=== PATIENT | male | born 1960 | race Caucasian/White ===

== ENCOUNTER → 2018-04-20 | Outpatient (CLI) | payer BC | END | disposition home or self-care (01) | LOC: RAH 09:04 | PROVIDERS: ATTEND Urology | DX: K76.0 Fatty (change of) liver, not elsewhere classified (principal); N28.1 Cyst of kidney, acquired; N28.89 Other specified disorders of kidney and ureter | CPT/HCPCS: 76700 ==

== ENCOUNTER 2019-04-15 23:43 | Emergency (ER) | payer BC ==
[2019-04-16] MEDS ORDERED: GENTAMICIN SULFATE 0.3% 5ML DROPS ONE (00:37)
[2019-04-16] MEDS ORDERED: LIDOCAINE HCL-MPF 1% 2ML VIAL ONE (00:38)
[2019-04-16] MEDS ORDERED: CEFTRIAXONE SODIUM 2 GM VIAL ONE (00:38)
== END 2019-04-16 00:45 | disposition home or self-care (01) ==
LOC: EDH 23:43
DX: H10.89 Other conjunctivitis (principal)
CPT/HCPCS: 96372; 99284; J0696; J3490

== ENCOUNTER → 2023-07-02 | Outpatient (CLI) | payer BC, SELFPAY | END | disposition home or self-care (01) | LOC: RAH 08:51 | PROVIDERS: ATTEND Internal Medicine Cardiovascular Disease | DX: I25.10 Atherosclerotic heart disease of native coronary artery without angina pectoris (principal); R93.1 Abnormal findings on diagnostic imaging of heart and coronary circulation | CPT/HCPCS: 78452; 96374; 93017; A9500 ×2 ==

== ENCOUNTER 2023-11-30 18:27 | Emergency (ER) | payer BC, SELFPAY ==
[~2023-11-30] VITALS: Ht 188 cm; Wt 106.6 kg
[2023-11-30 18:28] VITALS: BP 152/81; PULSE 82; RESP 16
[2023-11-30] MEDS: NEOMY SULF/BACITRA/POLYMYXIN B 1 EACH PACKET TP ONE (19:01)
[2023-11-30] MEDS: LIDOCAINE HCL 1% 20 ML VIAL INJ SCH (19:01)
[2023-11-30] MEDS: DIPH,PERTUSS(ACELL),TET VAC/PF 0.5 ML VIAL IM ONE (19:02)
== END 2023-11-30 21:20 | disposition home or self-care (01) ==
LOC: EDH 18:27
DX: S51.012A Laceration without foreign body of left elbow, initial encounter (principal); E78.00 Pure hypercholesterolemia, unspecified; I10 Essential (primary) hypertension; K21.9 Gastro-esophageal reflux disease without esophagitis; W01.0XXA Fall on same level from slipping, tripping and stumbling without subsequent striking against object, initial encounter; Y93.89 Activity, other specified; Y92.89 Other specified places as the place of occurrence of the external cause; Y99.8 Other external cause status
CPT/HCPCS: 12001; 73080; 90471; 90715

== ENCOUNTER → 2024-01-07 | Outpatient (CLI) | payer OTHER | END | disposition home or self-care (01) | LOC: RAH 09:09 | PROVIDERS: ATTEND Internal Medicine | DX: M19.022 Primary osteoarthritis, left elbow (principal); M25.522 Pain in left elbow | CPT/HCPCS: 73080 ==